=== PATIENT | male | born 1960 | race Caucasian/White ===

== ENCOUNTER 2020-11-03 12:45 | Outpatient (CLI) | payer OTHER, SELFPAY ==
[2020-11-03 13:56] LABS: SARS-CoV-2 RNA PCR Negative (Negative)
== END 2020-11-03 12:46 | disposition home or self-care (01) ==
LOC: CHSLAB 12:50
PROVIDERS: PCP Family Medicine; Visit Provider Internal Medicine Critical Care Medicine
DX: Z01.812 Encounter for preprocedural laboratory examination (principal); Z20.822 Contact with and (suspected) exposure to COVID-19
CPT/HCPCS: C9803; U0003; U0005

== ENCOUNTER 2020-11-10 12:30 | Outpatient (CLI) | payer OTHER, SELFPAY ==
[2020-11-10 13:51] LABS: SARS-CoV-2 RNA PCR Negative (Negative)
== END 2020-11-10 12:31 | disposition home or self-care (01) ==
LOC: CHSLAB 12:31
PROVIDERS: PCP Family Medicine; Visit Provider Family Medicine
DX: Z20.822 Contact with and (suspected) exposure to COVID-19 (principal)
CPT/HCPCS: C9803; U0003; U0005

== ENCOUNTER → 2020-11-12 20:19 | Outpatient (CLI) | payer OTHER, SELFPAY ==
--- NOTE | 2020-12-08 13:20 | WPDSLEEPSTUD ---
Sleep Study Date of Study: 11/12/20 Ordering Provider: Kevin Lala MD Interpreting Physician: Ailyn Villanueva MD Sleep Study Type: Split Polysomnogram Height: 1.63 m Weight: 138.346 kg Body Mass Index: 52.3 Neck Circumference (inches): 19.5 [place]: 27 Reason for Sleep Study Documented obstructive sleep apnea syndrome 15 years ago treated with CPAP, witnessed apnea, always tired, fatigue, excessive daytime sleep Sleep History Israel Keating is a 60-year-old male who was diagnosed with obstructive sleep apnea 15 years ago was treated with CPAP. his machine is old and is not working appropriately. He occasionally awakens from sleep feeling of breath. He frequently has heartburn belching or coughing at night that wakes him. He constantly snores loudly. He frequently has trouble sleeping with a cold. He frequently wakes up gasping for breath during the night. He constantly has breathing problems observed by others. He constantly sweats excessively at night. He occasionally has palpitations and notices his heart beating irregularly at night. He constantly falls asleep during the day, involuntarily and constantly falls asleep while driving. he occasionally falls asleep while exerting physical effort. He does not have loss of muscle tone with strong emotion. He does not feel paralyzed on waking or falling asleep. He constantly has vivid dreamlike scenes upon awakening or falling asleep. He does not feel afraid to go to sleep and does not have nightmares. He constantly remembers his dreams. He constantly has racing thoughts. He rarely feels sad or depressed. He does not have anxiety. He rarely has muscular tension. He constantly notices parts of his body jerking and he constantly kicks at night. He constantly has crawling aching feelings in his legs, leg pain at night and morning jaw pain. He rarely grinds his teeth during sleep. He constantly is bothered by pain during the day. He frequently is awakened by pain at night. He constantly wakes up feeling stiff in the morning with sore achy muscles. He rarely wakes up with pain in the spine. He has memory problems, fatigue, bowel disturbances and he takes antacids regularly. Normal bedtime is 9:00 p.m. falling asleep within 30 minutes typically waking 4-5 times at night to go urinate. He is able to return to sleep within 5 minutes. He wakes the morning at 6:00 a.m.. He estimates getting 8 hours of sleep at night. His weekend schedule is the same. He takes naps in the afternoon or evening. Short naps are not refreshing. He is drowsy in the morning for 3 hours or longer. HAbits: Never smoked tobacco. He does drink caffeine. No alcohol or recreational drugs. FORMERLY [facility], [facility] Past Medical History Medical History (Updated 12/08/20 @ 13:34 by Ailyn Villanueva MD) Mata's palsy Depression Diabetes GERD with apnea History of completed stroke Hypertension Kidney stone Obstructive sleep apnea Restless legs syndrome (RLS) Spinal stenosis Surgical History Surgical History (Updated 12/08/20 @ 13:28 by Ailyn Villanueva MD) Hx of total knee replacement left S/P orchiectomy Social History Social History (Updated 12/08/20 @ 13:26 by Ailyn Villanueva MD) Social History: Disabled. Smoking status: Never smoker Medications Medications: aspirin 81 mg a day enteric-coated metoprolol succinate 50 mg a day ropinirole 1 mg twice a day lisinopril 5 mg a day Sleep Procedure This test was performed using the [place]omo multiple channel system including EOG, EEG, submental EMG, EKG, nasal and oral airflow using thermistors and nasal pressure sensors, chest and abdominal belts for body position data, and pulse oximetry. Video monitoring was also performed. The study was scored using [facility] guidelines. The patient self-administered Ambien 10 mg at the onset of the study. After the baseline portion the patient met criteria for a titration with an apnea-hypopnea index of 2
[2020-12-08 13:31] VITALS: BMI 52.3
== END ==
PROVIDERS: PCP Family Medicine; Visit Provider Family Medicine
DX: G47.33 Obstructive sleep apnea (adult) (pediatric) (principal)
CPT/HCPCS: 95811

== ENCOUNTER 2021-11-25 11:38 | Emergency (ER) | payer OTHER, SELFPAY ==
[2021-11-25 11:40] VITALS: BP 175/84; PULSE 86; RESP 20; TEMP 36.9; O2SAT 96
--- NOTE | 2021-11-25 12:02 | ED.ABDPAIN ---
HPI - Abdominal Pain General Chief Complaint: Abdominal Pain Stated Complaint: ABD PAIN FEVER Time Seen by Provider: 11/25/21 12:02 Source: patient and RN notes reviewed Mode of arrival: ambulatory Limitations: no limitations History of Present Illness HPI narrative: Patient states he began having epigastric pain after having a late night snack 3 days ago. The pain seemed to progressively get worse in the epigastric area and up into his chest. He was concerned he might be having problems with his heart called an ambulance and went to another hospital nearby. They did a significant workup through the evening and into the next day. Basically any cardiac etiology was ruled out. He had a gallbladder ultrasound that apparently was normal but they were concerned the possibility he could have some sludge in his gallbladder and therefore needed a HIDA scan. He went to his primary care physician but when he mentioned the chest pain they sent him directly over here. He again reiterates he is not having chest pain he is having epigastric pain. He apparently had a temperature of a 100.1? at the office as well that they considered a fever. he says he has been having some nausea but no vomiting, no diarrhea, no fever no chills, no diaphoresis. MD elicited complaint: abdominal pain Onset (ago): day(s) (3) Pain Consistency: intermittent Location: epigastric and RLQ Severity: moderate Quality: aching Radiation: epigastric Migration to: no migration Exacerbating factors: eating Relieving factors: nothing Associated symptoms: nausea Related Data Home Medications Medication Instructions Recorded Confirmed aspirin 81 mg tablet,delayed 81 mg PO DAILY 11/25/21 11/25/21 release atorvastatin 10 mg tablet 10 mg PO DAILY 11/25/21 11/25/21 empagliflozin 25 mg tablet 25 mg PO DAILY 11/25/21 11/25/21 (Jardiance) lisinopril 20 1 tablet PO DAILY 11/25/21 11/25/21 mg-hydrochlorothiazide 12.5 mg tablet meclizine 25 mg tablet 25 mg PO TID 11/25/21 11/25/21 metformin 500 mg tablet 500 mg PO DAILY 11/25/21 11/25/21 metoprolol succinate 50 mg 50 mg PO DAILY 11/25/21 11/25/21 tablet,extended release 24 hr ropinirole 1 mg tablet 1 mg PO QHS 11/25/21 11/25/21 sitagliptin 100 mg tablet (Januvia) 100 mg PO DAILY 11/25/21 11/25/21 tamsulosin 0.4 mg capsule 0.4 mg PO DAILY 11/25/21 11/25/21 zolpidem 10 mg tablet 10 mg PO DAILY 11/25/21 11/25/21 Allergies Allergy/AdvReac Type Severity Reaction Status Date / Time No Known Allergies Allergy Verified 11/25/21 12:05 Review of Systems Review of Systems: All systems reviewed & are unremarkable except as noted in HPI and below Constitutional: Constitutional: Denies chills and Denies fever(s) Gastrointestinal: Gastrointestinal: Denies bloating, Reports heartburn, Denies diarrhea and Denies vomiting PMFSH Past Medical History Medical History Mata's palsy Depression Diabetes GERD with apnea History of completed stroke Hypertension Kidney stone Obstructive sleep apnea Restless legs syndrome (RLS) Spinal stenosis Surgical History Surgical History Hx of total knee replacement left S/P orchiectomy Social History Social History Social History: Disabled. Smoking status: Never smoker Exam Const: General: healthy appearing, no acute distress and alert Nutritional Appearance: well nourished and obese morbidly obese Orientation/consciousness: patient oriented x3 HENMT: Head: normal to inspection Ears: external ears normal Face and sinus: normal facial exam Eyes: Conjunctivae: conjunctivae normal Pupils: Equal, round and reactive pupils present EOM: EOMs intact bilaterally Neck: Neck: normal visual inspection Resp: Effort & Inspection: normal respiratory effort Auscultation: clear to auscultation bilaterally Cardio: R
[2021-11-25 12:34] LABS: Basophils Absolute Auto 0.03 K/mm3 (0.00-0.10); Basophils Percent Auto 0.3 % (0.0-1.0); Eosinophils Absolute Auto 0.08 K/mm3 (0.02-0.50); Eosinophils Percent Auto 0.8 % (1.0-6.0); Hematocrit 42.4 % (40.0-54.0); Hemoglobin 14.4 g/dL (14.0-18.0); Immature Granulocyte Absolute 0.05 K/mm3 (0.00-0.00); Immature Granulocyte Percent A 0.5 % (0.0-0.0); Lymphocytes Absolute Auto 1.21 K/mm3 (1.10-4.50); Lymphocytes Percent Auto 12.1 % (18.0-42.0); Mean Corpuscular Hemoglobin 29.8 pg (27.0-31.0); Mean Corpuscular Volume 87.6 fL (78.0-102.0); Monocytes Absolute Auto 0.92 K/mm3 (0.10-0.90); Monocytes Percent Auto 9.2 % (2.0-11.0); Neutrophils Absolute Auto 7.7 K/mm3 (1.7-7.2); Neutrophils Percent Auto 77.1 % (50.0-70.0); Platelet Count Result 221 K/mm3 (150-420); Red Blood Count 4.84 M/mm3 (4.70-6.10); Red Cell Distribution Width 13.9 % (11.6-14.4)
[2021-11-25 12:40] VITALS: BP 180/75; PULSE 77; RESP 18; TEMP 37.2; O2SAT 96
[2021-11-25 12:43] LABS: CRP 8.9 mg/dL (0.0-0.9)
[2021-11-25 12:47] LABS: Alanine Aminotransferase 40 U/L (16-63); Albumin Level 3.2 g/dL (3.4-5.0); Alkaline Phosphatase 65 U/L (46-116); Anion Gap 8 mmol/L (8-16); Aspartate Amino Transferase 20 U/L (15-37); Bilirubin,Total 1.2 mg/dL (0.00-1.00); Blood Urea Nitrogen 9 mg/dL (7-18); Calcium 8.6 mg/dL (8.5-10.1); Carbon Dioxide 26 mmol/L (21-32); Chloride 103 mmol/L (98-108); Estimated CRCL calculation 111 ml/min; Estimated Glomerular Filt Rate > 60; Glucose 128 mg/dL (70-99); Lipase 86 U/L (73-393); Osmolality Calculated 284 mOsm/kg (285-295); Potassium 3.6 mmol/L (3.5-5.1); Sodium 137 mmol/L (136-145)
[2021-11-25] MEDS: MAG HYDROX/ALUMINUM HYD/SIMETH 30 ML, PHENobarb/HYOSCY/ATROPINE/SCOP 32.4 MG, LIDOCAINE... PO (13:15)
[2021-11-25 13:40] VITALS: BP 160/85; PULSE 88; RESP 18; TEMP 37.5; O2SAT 97
== END 2021-11-25 13:50 | disposition home or self-care (01) ==
PROVIDERS: Emergency Provider Emergency Medicine; PCP Family Medicine
DX: K80.50 Calculus of bile duct without cholangitis or cholecystitis without obstruction (principal)
CPT/HCPCS: 36415; 80053; 83690; 85025; 86140; 99283; A9270

== ENCOUNTER 2021-11-27 10:47 | Outpatient (CLI) | payer OTHER, SELFPAY ==
--- NOTE | ~2021-11-27 | NM_ITS ---
EXAMINATION: NM hepatobiliary w pharm DATE: 11/27/2021 15:27 INDICATION: Right upper quadrant abdominal pain COMPARISON: None. TECHNIQUE: 5.2 mCi Tc-99m mebrofenin (Choletec) was administered intravenously. Scintigraphic images of the abdomen were obtained for one hour. Additional frontal and lateral scintigrams were obtained at 90 minutes and 4 hours. FINDINGS: There is normal clearance of radiotracer from the blood pool. There is homogeneous tracer uptake by t he liver. Activity progresses to the bowel with activity seen in the duodenum within 10 minutes. The re is progressive excretion of hepatic activity and increasing activity throughout the bowels through out the remainder of the study with no discernible gallbladder activity which could be seen with acut e cholecystitis. IMPRESSION: 1. No evident accumulation of activity in the gallbladder over the course of 4 hours of imaging whic h would be consistent with acute cholecystitis or prior cholecystectomy. Correlate with clinical hist ory and could consider imaging of the gallbladder with either ultrasound or CT for further evaluation . Reviewed, dictated and finalized at location A. IMPRESSION: 1. No evident accumulation of activity in the gallbladder over the course of 4 hours of imaging which would be consistent with acute cholecystitis or prior c holecystectomy. Correlate with clinical history and could consider imaging of t he gallbladder with either ultrasound or CT for further evaluation.
== END 2021-11-27 10:48 | disposition home or self-care (01) ==
LOC: CHSIMG 10:49
PROVIDERS: PCP Family Medicine; Visit Provider Family Medicine
DX: R10.11 Right upper quadrant pain (principal)
CPT/HCPCS: 78227; A9537; J2805

== ENCOUNTER 2024-12-18 08:41 | Outpatient (CLI) | payer MEDICARE, SELFPAY ==
--- OUTSIDE RECORDS SUMMARY | 2015-05-27 19:00 | XMS_ITS | Continuity of Care Document ---
Author Organization [facility] Address [address] [place] [address] Phone Care Team Providers Care Histologist Technologist Name Role Phone Gibran ZAMUDIO MD, Marcus Unavailable Unavaila ble Allergies, Adverse Reactions, Alerts Substance Reaction Status Criticality No Known Drug Allergies Active No I nformation Procedures Procedure Date Medical Testimony Deposition Special Narrative Report Medical Record Copy Medical Record Copy Per Page Affidavit X-ray exam both knees, standing 015 X-ray exam knee, 1 or 2 views 5 Office/outpatient visit,est, mod 2014 Supplemental Report Global/Postop followup visit Supplemental Report [facility] Hinged Knee Sleeve Global/Postop followup visit Supplemental Report Global/Postop followup visit Supplemental Report X-ray exam knee, 1 or 2 views 5 X-ray exam both knees, standing 015 Global/Postop followup visit Supplemental Report Asp/inject major joint or bursa 015 Depo Medrol Methylprednisolone 40 MG inj Global/Postop followup visit Supplemental Report Global/Postop followup visit Supplemental Report Arthroscopic Chondroplasty Synovectomy Limited Scope Office consultation, moderate-high Work/Medical Disability Exam RJR 2013 Advance Directives Directive Yes / No Effective Date File Name No Information Encounters Encounter Description Practice Location Reason(s) For Visit Diagnoses Date Provider Providers Copied on Encounter [facility], [address] [place] [address], [id number], [place] tel:[phone] [facility] No Information 6 Gibran Velazquez. [address] [place] [address], [id number], [place]. tel:[phone] [facility], [address] [place] [address], [id number], tel:[phone] [facility] No Information 6 Gibran Velazquez. [address], [id number], [place]. tel:[phone] [facility], [address] [place] [address], [id number], [place] tel:[phone] [facility] No Information 5 Administrati ve Provider. [address], [id number], [place]. tel:[phone] Office/outpa tient visit,est, mod [facility], [address] [place] [address], [id number], [place] tel:[phone] [facility] Aftercare for orthopedic care (relating to the bones, joints or spine) 5 Gibran Velazquez. [address], [id number], [place]. tel:[phone] [facility], [address] [place] [address], [id number], [place] tel:[phone] [facility] for orthopedic care (relating to the bones, joints or spine) - 5 Gibran Velazquez. [address] [facility], [address] [address], [place], [place], [id number], [place]. tel:[phone] [facility], [address] [address], [place], [place], [id number], [place] tel:[phone] [facility] for orthopedic care (relating to the bones, joints or spine) 2 7 5 Gibran Velazquez. [address] [facility], [facility] [address], [place], [place], [id number], [place]. tel:[phone] [facility], [address] [address], [place], [place], [id number], [place] tel:[phone] [facility] for orthopedic care (relating to the bones, joints or spine) 2 3- 5 Gibran Velazquez. [address] [facility], [facility], [place], [place], [id number], [place]. tel:[phone] [facility], [address], [id number], [place] tel:[phone] [facility] for orthopedic care (relating to the bones, joints or spine) 0 9 5 Mable Pop. [address] [facility], [address] [address], [place], [place], [id number], [place]. tel:[phone] [facility], [address], [id number], [place] tel:[phone] [facility] for orthopedic care (relating to the bones, joints or spine)CHONDROM ALACIA May-0 4- 5 Gibran Velazquez. [address] [facility], [address], [place], [place], [id number], [place]. tel:[phone] [facility], [address], [id number], [place] tel:[phone] [facility] for orthopedic care (relating to the bones, joints or spine)CHONDROM ALACIA 5 Gibran Velazquez. [facility], [address] [address], [place], [place], [id number], [place]. tel:[phone] [facility], [address] [place] [address], [id number], [place] tel:[phone] [facility] for orthopedic care (relating to the bones, joints or spine)CHONDROM ALACIA 5 Gibran Velazquez. [address] [place] [address], [id number], [place]. tel:[phone] [facility], [address] [place] [address], [id number], [place] tel:[phone] [facility] No Information 5 Gibran Velazquez. [address] [place] [address], [id number], [place]. tel:[phone] Office consultation , moderate-hig h [facility], [address] [place] [address], [id number], [place] tel:[phone] [facility] Chondromalacia 5 Gibran Velazquez. [address] [place] [address], [id number], [place]. tel:[phone] [facility], [address] [place] [address], [id number], [place] tel:[phone] [facility] Derangement (disorder) of the knee joint 4 Administrati ve Provider. [address] [place] [address], [id number], [place]. tel:[phone] Referring Provider: Rodrigo Castro, [address] [place] [address], [place], [address] . tel:[phone] Family History Family Member Type Diagnosis Age At Onset Mother Problem (finding) diabetes melli tus in first degree relative Mother Problem (finding) stroke Mother Problem (finding) Cardiovascular disease Father Problem (finding) prostate cancer Mother Problem (finding) hypertension Immunizations Vaccine Date Status Comments Flu (split) (3 yrs or older) administered Note: Invalid documented admin date was . ; Source: Other Provider Payers Payer name Insurance type Covered libertarian ID Authoriza tion(s) No Information Social History Type Description Quantity Date Captured Comments Sex Male Smoking Status No Information Chief Complaint And Reason For Visit No Information Reason For Referral Reason For Referral No Information Plan Of Treatment Date Type Action Status Referral Ordered: X-ray exam knee, 1 or 2 views LT ordered Referral Ordered: X-ray exam both knees, standing ordered Patient Education Body Mass Index: After Your Visit completed Patient Education Body Mass Index: After Your Visit completed Patient Education Body Mass Index: After Your Visit completed Patient Education Body Mass Index: After Your Visit completed Patient Education Body Mass Index: After Your Visit completed Patient Education Body Mass Index: After Your Visit completed History Of Present Illness Encounter Date Complaint History Of Prese nt Illness No Information Functional Status Date Functional Assessmen t No Information Instructions Date Instruction Additional Infor mation No Information Assessments Type Assessment Date No Information Patient Care Teams Name Effective Dates (start - stop) Status Members No Information
--- NOTE | 2024-12-18 | CONSULT_PTH ---
PATIENT: Israel Keating LOC: [facility]#:[id number] AGE/SX: 64/M ROOM: RE12/18/[address]: Kevin Lala MD : 1960 BED: DIS: 12/18/2024 SPEC #: [id number] RECD: 12/18/24 09:24 STATUS: OLVIN REAdal #: [id number] CHARLENE: 12/18/24 00:[address]: Kevin Lala DEPT: [facility] Consult RECD BY: Lisa Trent MLT, ([facility]) Tissues: A - Peripheral Smear Procedures: Hematology Consult
[2024-12-18 08:59] LABS: Hematocrit 38.7 % (40.0-54.0); Hemoglobin 12.8 g/dL (14.0-18.0); Mean Corpuscular HGB Conc 33.1 g/dL (32-36); Mean Corpuscular Hemoglobin 30.0 pg (27.0-31.0); Mean Corpuscular Volume 90.6 fL (78.0-102.0); Platelet Count Result 222 K/mm3 (150-420); Red Blood Count 4.27 M/mm3 (4.70-6.10); White Blood Count 3.9 K/mm3 (4.8-10.8)
--- OUTSIDE RECORDS SUMMARY | 2024-12-18 09:07 | XMS_ITS | Clinical Summary ---
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 Gender Identity Not on file Sexual Orientation Not on file Plan of Treatment Health Maintenance Due Date Last Done Comments Hepatitis C Virus (HCV) Screening 1960 TdaP Immunization 1960 Cologuard 11/22/2007 Colonoscopy 11/22/2007 Colorectal Cancer Screening 11/22/2007 Immunochemical Fecal Occult Blood 11/22/2007 Pneumococcal Immunization (5 0+ years) (1 of 1 - PCV) 2012 Zoster Immunization (1 of 2) 2012 SARS-COV-2 Immunization (1 - 2023- season) 2023 Influenza Immunization (#1) 2024 Respiratory Syncytial Virus (RSV) Immunization (Adult) (1 - 1-dose 75+ series) 2037 Hepatitis B Immunization Aged Out No longer eligible based on patient's age to complete this topic Human Papillomavirus (HPV) Immunization Aged Out No longer eligible b ased on patient's age to complete this topic Meningococcal Immunization (ACWY) Aged Out No longer eligible based on patient's age to complete this topic Rotavirus Immunization Aged Out No lo nger eligible based on patient's age to complete this topic
--- OUTSIDE RECORDS SUMMARY | 2024-12-18 09:07 | XMS_ITS | Clinical Summary ---
Author Organization [facility] Address [address] [place] [address] Care Team Providers Care Form Setter Steel Forms Name Role Phone Unavailable Primary Care Provider Unavailabl e Source Comments [facility],non-owned Affiliates and Associated Physician Practices is amultiple site organization consisting of ambulatory clinics and hospital sitesin [place], [place], [place] and [place]. This disclosure is being madepursuant to the Care Everywhere program and may not contain all information available regarding this patient. Last updated 17.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 Gender Identity Not on file Sexual Orientation Not on file Plan of Treatment Health Maintenance Due Date Last Done Comments COLOGUARD (AGES 45-75) - COL ON CA SCREENING 1960 COLON MONITORING 1960 COLONOSCOPY - COLON CA SCREENING 1962 CT COLONOGRAPHY - COLON CA SCREENING 1960 Colorectal Cancer Screening 1960 FIT - COLON CA SCREENING 1962 FLEX SIG - COLON CA SCREENING 1960 LIPID TESTING 1962 HIV SCREENING 1977 HEPATITIS C SCREENING 11/16/1980 DTAP/TDAP/TD VACCINES (1 - Tdap) 1981 PNEUMOCOCCAL VACCINE 50+ (1 of 1 - PCV) 2012 ZOSTER VACCINE (1 of 2) 2012 DEPRESSION SCREENING 03/28/2024 COVID-19 VACCINE (1 - 2023-2 5 season) 2024 INFLUENZA VACCINE (#1) 2024 Respiratory Syncytial Virus (RSV) Vaccine Pt: or over 60 yrs (1 - 1-dose 75+ series) 2037 HEPATITIS B VACCINE Aged Out No longe r eligible based on patient's age to complete this topic HIB VACCINE Aged Out No longer eligi ble based on patient's age to complete this topic HPV VACCINE Aged Out No longer eligi ble based on patient's age to complete this topic MENINGOCOCCAL (Group B) VACC INE SHARED DECISION-MAKING Aged Out No longer eligibl e based on patient's age to complete this topic MENINGOCOCCAL GROUPS A/C/Y/W VACCINE Aged Out No longer eligible b ased on patient's age to complete this topic
[2024-12-18 09:44] LABS: Alanine Aminotransferase 39 U/L (6-50); Albumin Level 4.2 g/dL (3.5-5.1); Alkaline Phosphatase 68 U/L (38-126); Anion Gap 11 mmol/L (4-12); Aspartate Amino Transferase 36 U/L (17-59); Bilirubin,Total 0.9 mg/dL (0.2-1.3); Blood Urea Nitrogen 19 mg/dL (9-20); CRP < 0.5 mg/dL (<1.0); Calcium 9.9 mg/dL (8.4-10.2); Carbon Dioxide 26 mmol/L (22-30); Chloride 99 mmol/L (98-107); Estimated Glomerular Filt Rate > 60; Glucose 300 mg/dL (65-110); Osmolality Calculated 295 mOsm/kg (285-295); Potassium 4.8 mmol/L (3.4-5.0); Sodium 136 mmol/L (137-145); Total Protein 8.1 g/dL (6.3-8.2); Uric Acid 5.3 mg/dL (3.5-8.5)
== END 2024-12-18 08:42 ==
PROVIDERS: PCP Family Medicine; Visit Provider Family Medicine
DX: M25.561 Pain in right knee (principal); M10.00 Idiopathic gout, unspecified site
CPT/HCPCS: 36415; 80053; 84550; 85027; 85652; 86140